=== PATIENT | female | born 1950 | race Caucasian/White ===

== ENCOUNTER 2018-06-29 15:10 | Inpatient (IN) | payer MEDICARE, BC ==
[2018-06-29] MEDS ORDERED: FUROSEMIDE 40 MG SOL IV ONE (16:00)
[2018-06-29] MEDS: SODIUM CHLORIDE 0.9% FLUSH 10 ML SOL IV PRN ×2 (16:36→20:15)
[2018-06-29 19:28] LABS: BASOPHILS % (AUTO) 1 % (0-3); CALCIUM 8.7 mg/dl (8.5-10.1); CARBON DIOXIDE 28.5 mEq/L (21-32); CREATININE 0.74 mg/dl (0.60-1.00); EOSINOPHILS % (AUTO) 1 % (0-9); HEMATOCRIT 28 % (35-47); HEMOGLOBIN 8.5 gm/dl (12.0-15.5); LYMPHOCYTES % (AUTO) 14.5 % (10-50); MEAN CORPUSCULAR HEMOGLOBIN 23.9 pg (27.0-32.0); MEAN CORPUSCULAR HGB CONC 29.8 gm/dl (32.0-36.0); MONOCYTES % (AUTO) 4.9 % (0-12); POTASSIUM 3.6 mMol/L (3.5-5.1)
[2018-06-29 19:31] LABS: MEAN CORPUSCULAR VOLUME 80 fL (81-99)
[2018-06-29 19:48] LABS: ANISOCYTOSIS MOD AMT; OVALOCYTES PRESENT; POIKILOCYTOSIS SLIGHT AMT
[2018-06-29] MEDS: PANTOPRAZOLE SODIUM 40 MG ECT PO SCH (20:13)
[2018-06-29] MEDS: PRAVASTATIN SODIUM 20 MG TAB PO SCH (20:14)
[2018-06-29] MEDS ORDERED: ROPINIROLE HYDROCHLORIDE 2 MG PO SCH (21:00)
[2018-06-29] MEDS: GABAPENTIN 100 MG CAP PO SCH (22:07)
[2018-06-29] MEDS: ROPINIROLE HCL 1 MG TAB PO SCH (22:07)
[2018-06-30] MEDS: FUROSEMIDE 40 MG SOL IV SCH ×2 (08:35→14:18)
[2018-06-30] MEDS ORDERED: DOCUSATE SODIUM 100 MG SGL PO SCH (09:00)
[2018-06-30] MEDS ORDERED: FERROUS SULFATE 325 MG PO SCH (09:00)
[2018-06-30] MEDS ORDERED: ACETAMINOPHEN 500 MG 500 MG TAB PO PRN (09:09)
[2018-06-30] MEDS: SERTRALINE HYDROCHLORIDE 50 MG TAB PO SCH (09:54)
[2018-06-30] MEDS: POTASSIUM CHLORIDE 10 MEQ TER PO SCH ×2 (09:55→21:15)
[2018-06-30] MEDS: FERROUS GLUCONATE 324 MG TABLET PO SCH (09:55)
[2018-06-30] MEDS: PANTOPRAZOLE SODIUM 40 MG ECT PO SCH (09:55)
[2018-06-30] MEDS: GABAPENTIN 100 MG CAP PO SCH ×3 (09:55→23:09)
[2018-06-30] MEDS: LISINOPRIL 20 MG TAB PO SCH (09:56)
[2018-06-30] MEDS: DOCUSATE SODIUM 100 MG SGL PO SCH (21:15)
[2018-06-30] MEDS: PRAVASTATIN SODIUM 20 MG TAB PO SCH (21:15)
[2018-06-30] MEDS: ROPINIROLE HCL 1 MG TAB PO SCH (21:15)
[2018-06-30 22:21] LABS: *FERRITIN 10 ng/ml (10-291); *IRON BINDING CAPACITY 411 mcg/dl (228-410); *IRON SATURATION % 16 % (15-46)
[2018-07-01] MEDS: SODIUM CHLORIDE 0.9% FLUSH 10 ML SOL IV PRN ×2 (04:59→21:08)
[2018-07-01 07:54] LABS: CALCIUM 8.3 mg/dl (8.5-10.1); CARBON DIOXIDE 29.5 mEq/L (21-32); CREATININE 0.68 mg/dl (0.60-1.00); POTASSIUM 4.2 mMol/L (3.5-5.1)
[2018-07-01 08:12] LABS: BASOPHILS % (AUTO) 1 % (0-3); EOSINOPHILS % (AUTO) 2 % (0-9); HEMATOCRIT 25 % (35-47); HEMOGLOBIN 7.7 gm/dl (12.0-15.5); LYMPHOCYTES % (AUTO) 17.7 % (10-50); MEAN CORPUSCULAR HGB CONC 30.1 gm/dl (32.0-36.0); MONOCYTES % (AUTO) 7.2 % (0-12)
[2018-07-01 08:20] LABS: MEAN CORPUSCULAR VOLUME 80 fL (81-99)
[2018-07-01] MEDS: FUROSEMIDE 40 MG SOL IV SCH (08:52)
[2018-07-01] MEDS: GABAPENTIN 100 MG CAP PO SCH (08:54)
[2018-07-01 08:55] LABS: ANISOCYTOSIS MOD AMT; OVALOCYTES PRESENT; POIKILOCYTOSIS SLIGHT
[2018-07-01] MEDS: SERTRALINE HYDROCHLORIDE 50 MG TAB PO SCH (08:56)
[2018-07-01] MEDS: POTASSIUM CHLORIDE 10 MEQ TER PO SCH ×2 (08:56→21:06)
[2018-07-01] MEDS: LISINOPRIL 20 MG TAB PO SCH (08:56)
[2018-07-01] MEDS: PANTOPRAZOLE SODIUM 40 MG ECT PO SCH (08:56)
[2018-07-01] MEDS: FERROUS GLUCONATE 324 MG TABLET PO SCH (08:56)
[2018-07-01] MEDS ORDERED: FUROSEMIDE 20 MG TAB PO PRN (09:21)
[2018-07-01] MEDS ORDERED: FUROSEMIDE 20 MG TAB PO SCH (12:00)
[2018-07-01 12:45] LABS: ABO O; ANTIBODY SCREEN Negative; RH TYPE Negative
[2018-07-01 13:53] LABS: UNIT TYPE O NEGATIVE
[2018-07-01 13:54] LABS: UNIT TYPE O NEGATIVE
[2018-07-01] MEDS: DOCUSATE SODIUM 100 MG SGL PO SCH (21:05)
[2018-07-01] MEDS: PRAVASTATIN SODIUM 20 MG TAB PO SCH (21:06)
[2018-07-01] MEDS: ROPINIROLE HCL 1 MG TAB PO SCH (21:06)
[2018-07-01] MEDS ORDERED: FUROSEMIDE 40 MG SOL IV SCH (21:30)
[2018-07-02] MEDS ORDERED: ALUMINUM/MAGNESIUM 30 ML SUS PO PRN (01:09)
[2018-07-02] MEDS ORDERED: LIDOCAINE HCL 2% (VISCOUS) 20 ML SOL MT ONE (01:09)
[2018-07-02] MEDS: GABAPENTIN 100 MG CAP PO SCH ×2 (01:37→09:00)
[2018-07-02 05:14] VITALS: O2SAT 93
[2018-07-02 08:25] LABS: BASOPHILS % (AUTO) 1 % (0-3); EOSINOPHILS % (AUTO) 3 % (0-9); HEMATOCRIT 31 % (35-47); HEMOGLOBIN 9.4 gm/dl (12.0-15.5); LYMPHOCYTES % (AUTO) 18.3 % (10-50); MEAN CORPUSCULAR HEMOGLOBIN 24.6 pg (27.0-32.0); MEAN CORPUSCULAR HGB CONC 30.3 gm/dl (32.0-36.0); MONOCYTES % (AUTO) 7.2 % (0-12); NEUTROPHILS % (AUTO) 70.5 % (37-80)
[2018-07-02 08:30] VITALS: BP 124/59; PULSE 52; RESP 22; TEMP 97.6
[2018-07-02 08:31] LABS: MEAN CORPUSCULAR VOLUME 81 fL (81-99)
[2018-07-02 08:32] LABS: ALBUMIN 2.8 gm/dl (3.4-5.0); BILIRUBIN,TOTAL 0.5 mg/dl (0.2-1.0); CALCIUM 8.4 mg/dl (8.5-10.1); CARBON DIOXIDE 30.7 mEq/L (21-32); CREATININE 0.69 mg/dl (0.60-1.00); POTASSIUM 4.1 mMol/L (3.5-5.1); TOTAL PROTEIN 6.4 gm/dl (6.4-8.2)
[2018-07-02] MEDS: SODIUM CHLORIDE 0.9% FLUSH 10 ML SOL IV PRN (09:22)
[2018-07-02 09:28] LABS: ANISOCYTOSIS SLIGHT AMT; HYPOCHROMASIA PRESENT
[2018-07-02] MEDS: FERROUS GLUCONATE 324 MG TABLET PO SCH (09:55)
[2018-07-02] MEDS: POTASSIUM CHLORIDE 10 MEQ TER PO SCH (09:56)
[2018-07-02] MEDS: SERTRALINE HYDROCHLORIDE 50 MG TAB PO SCH (09:56)
[2018-07-02] MEDS: LISINOPRIL 20 MG TAB PO SCH (09:56)
[2018-07-02] MEDS: PANTOPRAZOLE SODIUM 40 MG ECT PO SCH (09:56)
[2018-07-02] MEDS: FUROSEMIDE 40 MG TAB PO SCH ×2 (09:57→12:29)
[2018-07-02 10:09] LABS: APPEARANCE,URINE CLEAR; COLOR,URINE YELLOW; GLUCOSE, URINE (UA) NEGATIVE (NEGATIVE); KETONES,URINE NEGATIVE (NEGATIVE); NITRATE,URINE NEGATIVE (NEGATIVE); OCCULT BLOOD,URINE NEGATIVE (NEG-TRACE)
[2018-07-02 10:10] LABS: BACTERIA 1+ (< 1+); BILIRUBIN,URINE NEGATIVE (NEGATIVE); CRYSTALS NEGATIVE (0-3 AVE/HPF); LEUKOCYTE ESTERASE ,URINE 1+ (NEGATIVE); RBC,URINE NEG (0-3AV/HPF); UROBILINOGEN,URINE NORMAL (0.2-1.0 EU)
[2018-07-02 14:02] LABS: *RETICULOCYTE COUNT 2.7 % (0.5-2.0); *RETICULOCYTE# 0.084 m/uL (0.020-0.110)
[2018-07-03 09:24] LABS: *FOLATE 11.5 ng/ml (2.6-20.0)
== END 2018-07-02 16:40 | disposition home or self-care (01) | DRG 812 ==
LOC: ACUTE CARE 15:24
PROVIDERS: ADMIT Family Medicine; ATTEND Family Medicine
PROC: 30233N1 Transfusion of Nonautologous Red Blood Cells into Peripheral Vein, Percutaneous Approach (ICD-10-PCS; principal; 2018-07-01)
DX: D50.0 Iron deficiency anemia secondary to blood loss (chronic) (principal); I50.9 Heart failure, unspecified; R79.1 Abnormal coagulation profile; K22.70 Barrett's esophagus without dysplasia; S81.801A Unspecified open wound, right lower leg, initial encounter; R60.1 Generalized edema; R06.02 Shortness of breath; K44.9 Diaphragmatic hernia without obstruction or gangrene
CPT/HCPCS: 36415; 71275; 80048; 80053; 81001; 82272; 83880; 84484; 85018; 85025; 86850; 86900; 86901; 86920; 93005; 93012; 99070; J1940; Q9967; A6232; A6402; A6446; A9270; A9270-GY